=== PATIENT | female | born 1995 | race Caucasian/White ===

== ENCOUNTER 2017-11-15 15:20 | Emergency (ER) | payer MEDICAID ==
[2017-11-15 15:27] VITALS: O2SAT 99
--- NOTE | 2017-11-15 16:17 | C.PDOC ---
History Of Present Illness 22 y/o female presents to ED with c/o sharp "cramping" suprapubic abdominal pain developed 3 hours [employer]. Patient reports not taking any pain medication and denies fever, chills, n/v/d, vaginal bleeding, vaginal discharge or any other complaints at this time. LMP 3 weeks ago Time Seen by Provider: 11/15/17 15:30 Chief Complaint (Nursing): Abdominal Pain History Per: Patient History/Exam Limitations: no limitations Onset/Duration Of Symptoms: Days Current Symptoms Are (Timing): Still Present Location Of Pain/Discomfort: Suprapubic Radiation Of Pain To:: None Quality Of Discomfort: Sharp, Cramping Past Medical History Reviewed: Historical Data, Nursing Documentation, Vital Signs Vital Signs: Last Vital Signs Temp 99 F 11/15/17 15:25 Pulse 84 11/15/17 15:25 Resp 18 11/15/17 15:25 BP 126/80 11/15/17 15:25 Pulse Ox 99 11/15/17 16:18 - Medical History PMH: No Chronic Diseases Surgical History: No Surg Hx Family History: States: No Known Family Hx - Social History Hx Alcohol Use: Yes Hx Substance Use: No Review Of Systems Except As Marked, All Systems Reviewed And Found Negative. Gastrointestinal: Positive for: Abdominal Pain Physical Exam - Physical Exam Appears: Non-toxic, No Acute Distress Skin: Warm, Dry, No Rash Head: Atraumatic, Normacephalic Eye(s): bilateral: Normal Inspection Oral Mucosa: Moist Neck: Normal ROM, Supple Cardiovascular: Rhythm Regular Respiratory: Normal Breath Sounds, No Accessory Muscle Use, No Rales, No Rhonchi , No Wheezing Gastrointestinal/Abdominal: Soft, Tenderness (Suprapubic), No Guarding, No Rebound Back: No CVA Tenderness, No Paraspinal Tenderness Neurological/Psych: Oriented x3, Normal Speech ED Course And Treatment O2 Sat by Pulse Oximetry: 99 (RA) Pulse Ox Interpretation: Normal Medical Decision Making Medical Decision Making: Assessment: Suprapubic abdominal pain Patient states improvement, no further pain, consumed meal. Will discharge home to follow up with pmd in 2 days. Disposition Counseled Patient/Family Regarding: Studies Performed, Diagnosis - Disposition Referrals: [facility] [Outside] Disposition: HOME/ ROUTINE Disposition Time: 17:09 Condition: STABLE Additional Instructions: follow up with your doctor within 2 days call to make an appointment take advil or motrin for pain return to ER if symptoms worsens or progress Instructions: Stomach Ache and Stomach Upset Forms: [facility] (German), General Discharge Instructions - Clinical Impression Clinical Impression: Abdominal pain - Scribe Statement The provider has reviewed the documentation as recorded by the Jaxibdenilson Salazar All medical record entries made by the Silvino were at my direction and personally dictated by me. I have reviewed the chart and agree that the record accurately reflects my personal performance of the history, physical exam, medical decision making, and the department course for this patient. I have also personally directed, reviewed, and agree with the discharge instructions and disposition.
[2017-11-15 16:38] LABS: SQUAMOUS EPITHIAL 3 /hpf (0-5); URINE BACTERIA RARE (<OCC); URINE BILIRUBIN NEGATIVE (NEGATIVE); URINE BLOOD NEGATIVE (NEGATIVE); URINE CLARITY Hazy (Clear); URINE COLOR Yellow (YELLOW); URINE GLUCOSE (UA) NORMAL (Normal); URINE LEUKOCYTE ESTERASE NEG Leu/uL (Negative); URINE PROTEIN NEGATIVE (NEGATIVE)
[2017-11-15 17:19] VITALS: BP 108/66; PULSE 74; RESP 16; TEMP 98.8
== END 2017-11-15 17:29 | disposition home or self-care (01) ==
LOC: C.ER 15:20
DX: R10.9 Unspecified abdominal pain (principal)